=== PATIENT | female | born 1985 | race Caucasian/White ===

== ENCOUNTER 2017-01-14 18:44 | Observation (INO) ==
[2017-01-14 19:16] LABS: Basophils % 0.2 %; Eosinophils # 0.1 K/mcL (0.0-0.6); Eosinophils % 0.3 %; Hematocrit 45.7 % (35.3-44.9); Hemoglobin 14.9 g/dL (11.5-15.4); Immature Granulocytes % 0.5 % (0-4); Lymphocytes # 1.4 K/mcL (0.6-4.6); Mean Corpuscular HGB Conc 32.6 g/dL (31.6-35.5); Mean Corpuscular Hemoglobin 30.8 pg (28.0-33.3); Mean Corpuscular Volume 94.6 fL (83.0-100.0); Mean Platelet Volume 8.8 fL (9.4-12.4); Monocytes % 5.1 %; Neutrophils # 17.2 K/mcL (1.6-8.9); Platelet Count 306 K/mcL (140-400); Red Blood Count 4.83 M/mcL (3.82-4.97); Red Cell Distribution Width 12.8 % (11.5-14.5); Segmented Neutrophils % 86.9 %
[2017-01-14 19:30] LABS: Alanine Aminotransferase 60 Units/L (0-55); Albumin 3.7 g/dL (3.5-5.0); Albumin/Globulin Ratio 1.1 (1.1-2.2); Alkaline Phosphatase 57 Units/L (38-126); Aspartate Amino Transferase 28 Units/L (5-34); BUN/Creatinine Ratio 12 (6-26); Bilirubin,Direct 0.3 mg/dL (0.0-0.5); Bilirubin,Indirect 0.4 mg/dL (0.0-1.2); Bilirubin,Total 0.7 mg/dL (0.2-1.2); Blood Urea Nitrogen 12 mg/dL (7-20); Calcium 8.8 mg/dL (8.6-10.8); Carbon Dioxide 20 mEq/L (19-29); Chloride 109 mEq/L (98-109); Globulin 3.5 g/dL (2.4-3.5); Glucose 216 mg/dL (70-99); Osmolality,Calculated 296 (280-300); Potassium 3.8 mEq/L (3.5-4.5); Sodium 140 mEq/L (136-145); Total Protein 7.2 g/dL (6.0-8.3); eGFR For African Americans > 60 (> 60); eGFR For Non-African Americans > 60 (> 60)
[2017-01-14 19:32] LABS: Acetaminophen < 1.0 mcg/mL (10-30); Salicylate < 5.0 mg/dL (15-30)
--- NOTE | 2017-01-14 19:52 | Emergency Department Note ---
Overdose - [facility] Narrative Medical decision making narrative: Patient was brought in for suspected overdose. Patient responded to Narcan. Patient was found down at the site at her friend's house and per report patient was cyanotic. Patient was given 2 mg of Narcan. Patient started to come out of it. Paramedics were called to the scene and patient was brought to the hospital. Patient continued to go in and out of consciousness but was able to maintain her airway. When alert patient was alert alert and oriented 3 but with [place] off into sleep. Patient remained easily arousable but patient's stupor is some matter of concern. We monitored patient for a number of hours the patient's condition continued to remain the same patient would be awake and playing on her phone and look very alert and in within moments she would pass out. Patient's urine came back positive for UTI, urine trichomonas, urine tox screen came back positive for benzos and opiates. ABG ordered Metronidazole ordered to cover for possible Trichomonas infection Patient is accepted for admission by Dr. Garvin the hospitalist @2246hrs - Lab Data Lab results reviewed: Yes I reviewed the patient's lab results. Lab results narrative: Short CBC 01/14/17 Range/Units 19:08 WBC 19.8 H (4.3-11.1) K/mcL Hgb 14.9 (11.5-15.4) g/dL Hct 45.7 H (35.3-44.9) % Plt Count 306 (140-400) K/mcL Neutrophils # 17.2 H (1.6-8.9) K/mcL BMP 01/14/17 Range/Units 19:08 Sodium 140 (136-145) mEq/L Potassium 3.8 (3.5-4.5) mEq/L Chloride 109 (98-109) mEq/L Carbon Dioxide 20 (19-29) mEq/L BUN 12 (7-20) mg/dL Creatinine 0.97 (0.57-1.11) mg/dL Glucose 216 H (70-99) mg/dL Calcium 8.8 (8.6-10.8) mg/dL Liver Function 01/14/17 Range/Units 19:08 Total Bilirubin 0.7 (0.2-1.2) mg/dL Direct Bilirubin 0.3 (0.0-0.5) mg/dL AST 28 (5-34) Units/L ALT 60 H (0-55) Units/L Alkaline Phosphatase 57 (38-126) Units/L Albumin 3.7 (3.5-5.0) g/dL Urine 01/14/17 Range/Units 22:09 Urine Color Dark Yellow (Yellow) Urine Clarity Turbid A (Clear) Urine pH 6.0 (5.0-8.0) pH Units Ur Specific [place] 1.023 (1.010-1.025) Urine Protein 100 H (Neg-Trace) mg/dL Urine Glucose (UA) 100 H (Normal) mg/dL Result diagrams: 01/14/17 19:08 01/14/17 19:08 Lab Results 01/14/17 01/14/17 Range/Units 19:08 19:08 WBC 19.8 H (4.3-11.1) K/mcL RBC 4.83 (3.82-4.97) M/mcL Hgb 14.9 (11.5-15.4) g/dL Hct 45.7 H (35.3-44.9) % MCV 94.6 (83.0-100.0) fL MCH 30.8 (28.0-33.3) pg MCHC 32.6 (31.6-35.5) g/dL RDW 12.8 (11.5-14.5) % Plt Count 306 (140-400) K/mcL MPV 8.8 L (9.4-12.4) fL Immature Gran % 0.5 (0-4) % Seg Neutrophils % 86.9 % Lymphocytes % 7.0 % Monocytes % 5.1 % Eosinophils % 0.3 % Basophils % 0.2 % Neutrophils # 17.2 H (1.6-8.9) K/mcL Lymphocytes # 1.4 (0.6-4.6) K/mcL Monocytes # 1.0 (0.0-1.3) K/mcL Eosinophils # 0.1 (0.0-0.6) K/mcL Basophils # 0.0 (0.0-0.2) K/mcL Sodium 140 (136-145) mEq/L Potassium 3.8 (3.5-4.5) mEq/L Chloride 109 (98-109) mEq/L Carbon Dioxide 20 (19-29) mEq/L BUN 12 (7-20) mg/dL Creatinine 0.97 (0.57-1.11) mg/dL Est GFR ( Amer) > 60 (> 60) Est GFR (Non-Af Amer) > 60 (> 60) BUN/Creatinine Ratio 12 (6-26) Glucose 216 H (70-99) mg/dL Calculated Osmolality 296 (280-300) Calcium 8.8 (8.6-10.8) mg/dL Total Bilirubin 0.7 (0.2-1.2) mg/dL Direct Bilirubin 0.3 (0.0-0.5) mg/dL Indirect Bilirubin 0.4 (0.0-1.2) mg/dL AST 28 (5-34) Units/L ALT 60 H (0-55) Units/L Alkaline Phosphatase 57 (38-126) Units/L Serum Total Protein 7.2 (6.0-8.3) g/dL Albumin 3.7 (3.5-5.0) g/dL Globulin 3.5 (2.4-3.5) g/dL Albumin/Globulin Ratio 1.1 (1.1-2.2) Salicylates < 5.0 L (15-30) mg/dL Acetaminophen < 1.0 L (10-30) mcg/mL - Radiology Data Radiology results reviewed: Yes I reviewed the patient's radiology results. Chest X-Ray 01/14/17 18:51 IMPRESSION: No acute pulmonary process. Progress films are recommended, as x-ray appearance can be normal in the early hours following alveolar injury from overdose. D/ / Terell Hardy / Terell Hardy Interpreting Provider: Terell Hardy - EKG Data EKG attestation: Yes I reviewed and interpreted this EKG. EKG results narrative: EKG taken 01/14/2017 at 1910 hrs. shows a sinus rhythm at a rate of [address] elevations or depressions and a leads, the patient does show T-wave inversions in lead 3. No QRS widening or QT prolongation. No previous EKG for comparison. Overdose HPI - General Chief Complaint: ED Overdose Stated Complaint: Overdose Source: EMS Limitations: no limitations Nursing Notes Reviewed: Yes Vital Signs Reviewed: Yes - History of Present Illness HPI Narrative: Patient is a 31-year-old female who is brought in by EMS secondary to overdose. Patient states that she has not taken anything. Patient states that she status post 4 urological surgery to break up kidney stones in her left ureter. This was performed at [facility]. EMS states patient was given 2 mg of Narcan as she was found at the scene unconscious and cyanotic. Patient became alert after given the Narcan. Patient states that she started having nausea and vomiting at around 1600 hrs. today just prior to the onset of her loss of consciousness. Patient states she smokes but denies alcohol use and illicit drug use now. 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 - Related Data Home Medications Medication Instructions Recorded Confirmed Unable To Obtain [Unable to Obtain] 01/14/17 01/14/17 Allergies Allergy/AdvReac Type Severity Reaction Status Date / Time Cefaclor [From Ceclor] Allergy Swelling Verified 04/17/16 12:04 of Lip/Tongue/Throat cephalexin [From Keflex] Allergy Swelling Verified 04/17/16 12:04 of Lip/Tongue/Throat Erythromycin Base Allergy Swelling Verified 04/17/16 12:04 of Lip/Tongue/Throat All systems ED: reviewed and negative except as stated. Review of Systems: As Per HPI Constitutional: Denies: fever Eyes: Denies: vision change ENT ED: Denies: congestion Cardiovascular: Denies: chest pain, palpitations Respiratory: Denies: cough, dyspnea, wheezes Gastrointestinal: Reports: abdominal pain Musculoskeletal: Reports: back pain Integumentary: Denies: rash Neurological: Denies: headache Past Medical History - Past Medical History Attestation: Yes The following information was validated with the patient. Source: patient Medical history: Reports: asthma Psychiatric history: Reports: no psych history CLIENT SUPPORT COORDINATOR history: Reports: spontaneous , bilateral tubal ligation - Social History Smoking Status: Current every day smoker Smokeless Tobacco Status: No Alcohol use: Reports: none Drug use: Reports: IV Drug Use Physical Exam Patient is a 31-year-old female who is alert and oriented 3 and in no acute distress. Patient is very sleepy. Patient having a hard time staying awake. Patient does answer questions appropriately. - General Limitations: no limitations General appearance: alert, in no apparent distress - Head Head exam: atraumatic, normocephalic, normal inspection - Eye Eye exam: Present: normal appearance, PERRL, EOMI - ENT ENT exam: normal exam, normal oropharynx, mucous membranes moist - Neck Neck exam: Present: normal inspection, full ROM, trachea midline - Chest Chest inspection: Present: normal inspection, symmetric chest wall rise - Respiratory Respiratory exam: Present: normal lung sounds bilaterally - Cardiovascular Cardiovascular exam: Present: regular rate, normal rhythm, normal heart sounds - Abdominal Exam Abdominal exam: Present: soft, Non-Tender. Absent: tenderness, distention, guarding, rebound, rigidity - Extremities Exam Extremities exam: Present: normal inspection, full ROM. Absent: tenderness, pedal edema - Expanded Lower Extremity Exam Hip/Pelvis exam: Present: normal inspection, full ROM Upper leg exam: Present: normal inspection, full ROM Knee exam: Present: normal inspection, full ROM Lower leg exam: Present: normal inspection, full ROM Ankle exam: Present: normal inspection, full ROM Foot/toe exam: Present: normal inspection, full ROM Neurovascular/Tendon exam: Absent: motor deficit, sensory deficit, tendon deficit - Back Exam Back exam: Present: normal inspection, full ROM, CVA tenderness (L). Absent: tenderness, CVA tenderness (R) - Neurological Exam Neurological exam: Present: alert, oriented X3 - Psychiatric Psychiatric exam: Present: depressed (Depressed mental state) - Skin Skin exam: Present: warm, diaphoresis Course Vital Signs Temperature 98.2 F 01/14/17 18:48 Pulse Rate 100 01/14/17 18:48 Respiratory Rate 18 01/14/17 18:48 Blood Pressure 124/84 01/14/17 18:48 O2 Sat by Pulse Oximetry 84 01/14/17 18:48 Temperature 98.2 F 01/14/17 18:48 Pulse Rate 88 01/14/17 21:15 Respiratory Rate 16 01/14/17 21:15 Blood Pressure 131/83 01/14/17 21:15 O2 Sat by Pulse Oximetry 97 01/14/17 21:15 Oxygen Delivery Oxygen Delivery Room Air Disposition Clinical Impression: Stuporous depression Overdose Qualifiers: Encounter type: initial encounter Injury intent: undetermined intent Qualified Code(s): T50.904A - Poisoning by unspecified drugs, medicaments and biological substances, undetermined, initial encounter Acute drug overdose Qualifiers: Encounter type: initial encounter Injury intent: undetermined intent Qualified Code(s): T50.904A - Poisoning by unspecified drugs, medicaments and biological substances, undetermined, initial encounter Altered mental status Qualifiers: Altered mental status type: transient alteration of awareness Qualified Code(s) : R40.4 - Transient alteration of awareness Nausea and vomiting Qualifiers: Vomiting type: unspecified Vomiting Intractability: non-intractable Qualified Code(s): R11.2 - Nausea with vomiting, unspecified Disposition: Admitted As Inpatient Condition: Fair Referrals: NONE,PCP [Non-Partnered Physician] - Forms: ED Satisfaction Letter Time of Disposition: 23:27 Attestation Statement - Attestation Attestation: I, Ciro Valentine DO, examined this patient [id number] and my medical decision-making was reviewed with Dr. Alton Flores, Resident Physician. I agree with the documented findings, disposition and treatment plan as described except to the extent set forth below. Please see my progress notes for details. 31-year-old female presented by EMS after being found down at her residence. She is breathing approximately 3-4 times a minute she was cyanotic and had diminished pulses. Patient had pinpoint pupils. Narcan was given by the police initially 2 mg of Narcan was again given by EMS. On presentation patient is slightly somnolent her pupils are 2 mm but minimally reactive at this point. She is allergic answers questions appropriately. According EMS is sitting in a pool of her own vomit. Chest x-ray EKG labs including CBC chemistry urinalysis and urine drug screen ordered this time. Patient did say that she had anesthesia today for lithotripsy. She was discharged from the hospital multiple hours ago without any complication. Denies any specific drugs of abuse but did use methamphetamine according to her. Patient fits a toxidrome of opioid overdose at this point. We will continue to monitor here and control symptoms. Patient will also be evaluated further pathology including infection aspiration pneumonia cardiac related symptoms radiology as well as infectious pathology or other drugs of abuse. Patient otherwise is neurologically intact except for somnolence. No acute signs of medication reaction secondary to the anesthesia today. Patient is otherwise alert and oriented this point on presentation after receiving 2 doses of Narcan. Physical exam is otherwise benign except for dried emesis on the side of the face. Trachea is midline lungs are clear no coarse crackles noted. Heart is regular. Initial vital signs did show hypoxia when she got here when she got sitting upright pulse ox became normal. Blood pressure heart rate otherwise unremarkable. See detailed documentation of the physical exam, medical intervention, medical decision making process and disposition and the resident physician's note.
[2017-01-14] MEDS ORDERED: Ondansetron ODT 4 MG TAB.RAPDIS SL ONE (20:36)
[2017-01-14] MEDS ORDERED: 0.9 % Sodium Chloride 1,000 ML IVC ONE (22:02)
[2017-01-14] MEDS ORDERED: Clindamycin 900 MG/50 ML 900 MG/50 ML IV.SOLN IVPB ONE (22:02)
[2017-01-14 22:24] LABS: Bilirubin,Urine Negative (Negative); Blood,Urine Large (Negative); Clarity,Urine Turbid (Clear); Color,Urine Dark Yellow (Yellow); Glucose,Urine (UA) 100 mg/dL (Normal); Ketones,Urine Negative (Negative); Leukocyte Esterase,Urine Moderate (Negative); Nitrite,Urine Negative (Negative); Protein,Urine 100 mg/dL (Neg-Trace); Specific Gravity,Urine 1.023 (1.010-1.025); Urobilinogen,Urine Normal (Normal)
[2017-01-14 22:26] LABS: Bacteria,Urine Moderate per hpf (None-Few); RBC,Urine TNTC per hpf (0-3); Squamous Epithelial Cell,Urine Many per lpf (None-Few); WBC,Urine TNTC per hpf (0-3)
[2017-01-14 22:30] LABS: Amphetamine Screen,Urine Negative ng/mL (Cutoff=1000); Barbiturate Screen,Urine Negative ng/mL (Cutoff=200); Benzodiazepines Screen,Urine Positive ng/mL (Cutoff=200); Cannabinoid Screen,Urine Negative ng/mL (Cutoff = 50); Cocaine Screen,Urine Negative ng/mL (Cutoff= 300); Opiate Screen,Urine Positive ng/mL (Cutoff=300); Phencyclidine Screen,Urine Negative ng/mL (Cutoff=25)
[2017-01-14 22:39] LABS: Hyaline Casts,Urine Few per lpf (None-Few); Mucus,Urine Many (Few); Trichomonas,Urine Present (None Seen)
--- NOTE | 2017-01-14 22:57 | Internal Med History&Physical ---
Date of Encounter: 01/14/17 Time of Encounter: 22:51 Internal Medicine - H&P: HPI Chief complaint: Overdose Admitted From: Home Plans for Post Hospital Care: Home History of present illness: Ms. Mcdonough is a 31 year old female Past Med Surg Social Fam HX - Past Medical History Medical history: asthma Psychiatric history: no psych history - Social History Smoking Status: Current every day smoker Smokeless Tobacco Status: No Alcohol use: none Drug use: IV Drug Use Internal Medicine - H&P: Meds Unable To Obtain [Unable to Obtain] 01/14/17 [History] 3 Allergy/AdvReac Type Severity Reaction Status Date / Time Cefaclor [From Ceclor] Allergy Swelling Verified 04/17/16 12:04 of Lip/Tongue/Throat cephalexin [From Keflex] Allergy Swelling Verified 04/17/16 12:04 of Lip/Tongue/Throat Erythromycin Base Allergy Swelling Verified 04/17/16 12:04 of Lip/Tongue/Throat All Systems PM: A 10-system review of systems was performed and is negative for pertinent findings except as documented above in the HPI. - Constitutional Vitals: Temp Pulse Resp BP Pulse Ox 98.2 F 88 16 131/83 97 01/14/17 18:48 01/14/17 21:15 01/14/17 21:15 01/14/17 21:15 01/14/17 21:15 Internal Med - H&P Results - Labs CBC & Chem 7: 01/14/17 19:08 01/14/17 19:08 Labs: Short CBC 01/14/17 Range/Units 19:08 WBC 19.8 H (4.3-11.1) K/mcL Hgb 14.9 (11.5-15.4) g/dL Hct 45.7 H (35.3-44.9) % Plt Count 306 (140-400) K/mcL Neutrophils # 17.2 H (1.6-8.9) K/mcL BMP 01/14/17 19:08 Sodium 140 Potassium 3.8 Chloride 109 Carbon Dioxide 20 BUN 12 Creatinine 0.97 Glucose 216 H Calcium 8.8 Liver Function 01/14/17 Range/Units 19:08 Total Bilirubin 0.7 (0.2-1.2) mg/dL Direct Bilirubin 0.3 (0.0-0.5) mg/dL AST 28 (5-34) Units/L ALT 60 H (0-55) Units/L Alkaline Phosphatase 57 (38-126) Units/L Albumin 3.7 (3.5-5.0) g/dL Urine 01/14/17 Range/Units 22:09 Urine Color Dark Yellow (Yellow) Urine Clarity Turbid A (Clear) Urine pH 6.0 (5.0-8.0) pH Units Ur Specific [place] 1.023 (1.010-1.025) Urine Protein 100 H (Neg-Trace) mg/dL Urine Glucose (UA) 100 H (Normal) mg/dL - Impressions ITS Impressions Chest X-Ray 01/14/17 18:51 IMPRESSION: No acute pulmonary process. Progress films are recommended, as x-ray appearance can be normal in the early hours following alveolar injury from overdose. D/ / Terell Hardy / Terell Hardy Interpreting Provider: Terell Hardy
[2017-01-14] MEDS ORDERED: MetroNIDAZOLE 500 MG/100 ML 500 MG/100 ML BAG IVPB ONE (23:24)
[2017-01-14] MEDS ORDERED: *HR* Promethazine 25 MG/ML VIAL IM ONE (23:29)
[2017-01-15] MEDS ORDERED: Naloxone 0.4 MG/ML INJ IVP PRN ×2 (02:58→05:08)
[2017-01-15] MEDS ORDERED: Albuterol 2.5 MG/3 ML NEBULIZER IH PRN (02:59)
--- NOTE | 2017-01-15 03:04 | Event Note ---
Date of Encounter: 01/15/17 Time of Encounter: 03:01 Patient and examined with medical assistant secretary. She presents with a picture suspicious of opiate overdose. Reportedly she had a pinpoint pupil and was to stuporous on arrival of paramedics improved after Narcan. Still lethargic during my interview. Patient today had a urology procedures for left kidney stone according to her. She mentioned that she was given a prescription for [place] only took 2 pills of it. She adamantly denies drug use. She is on antibiotics ciprofloxacin for urinary tract infection. He also mentioned that at the onset of her symptoms she had no episode of vomiting with concern of aspiration. X-ray shows no evidence of pneumonia. She has a white count of 19, 000 not hypotensive. Will hydrate the patient give Narcan as needed. Start on levofloxacin. Get Urine culture. Check arterial blood gas. Keep NPO for now.
[2017-01-15] MEDS ORDERED: Ipratropium/Albuterol Neb 3 ML IH PRN (03:07)
--- NOTE | 2017-01-15 03:28 | Internal Med History&Physical ---
Date of Encounter: 01/15/17 Time of Encounter: 00:15 Assessment and Plan (1) Acute drug overdose Current visit: Yes Status: Acute Patient presents with suspected opiate overdose. -We will give Narcan when necessary. -Keep patient nothing by mouth, due to concern of possible aspiration. -Administer IV fluids. -Check arterial blood gas. Qualifiers: Encounter type: initial encounter Injury intent: undetermined intent Qualified Code(s): T50.904A - Poisoning by unspecified drugs, medicaments and biological substances, undetermined, initial encounter (2) Urinary tract infection Current visit: Yes Status: Acute Patient presents with a urinary tract infection. -Patient had an elevated white count of 19.8. -Urinalysis revealed turbid urine with positive protein, glucose, blood, red blood cells, white blood cells, leukocyte esterase, mucus, and Trichomonas. -We will start on Levaquin 750 mg IV daily. -Continue to monitor. Qualifiers: Qualified Code(s): N39.0 - Urinary tract infection, site not specified (3) Nausea and vomiting Current visit: Yes Status: Acute Patient had vomited several times when she was at her friend's house. -Patient was found in a pile of her own vomit. -Patient has not experienced any nausea or vomiting since her admission. -Patient will be kept nothing by mouth for the time being to prevent the possibility of aspiration. -Chest x-ray did not reveal any signs of pneumonia. Qualifiers: Vomiting type: unspecified Vomiting Intractability: non-intractable Qualified Code(s): R11.2 - Nausea with vomiting, unspecified Internal Medicine - H&P: HPI Chief complaint: Loss of consciousness and cyanosis Admitted From: Home History of present illness: Ms. Mcdonough is a 31 year old female who was seen and examined at bedside this morning. She is a 31-year-old female who was admitted to the hospital with suspected opiate overdose. Patient was at her friend's house, and was found lying down on the ground in a pile of her own vomit. Patient was breathing slowly, she was cyanotic upon arrival of emergency services. Patient was given 2 mg of Narcan, and her condition improved shortly after. On arrival to the hospital, patient had pinpoint pupils and was stuporous. Earlier in the day, patient had a urology procedure for her left kidney stone. Patient was under anesthesia for this procedure. She was given a prescription for [place], and stated that she only took 2 pills. Patient denies current drug use, although admits to using methamphetamine in 2015. Upon admission to the hospital, patient was very drowsy, clammy, and had pinpoint pupils. On physical examination she had a depressed mental state and diaphoresis. Patient did not have nausea, vomiting, chills, fever, or pain. On admission, patient's vital signs were as follows: Temperature was 98.2, pulse was 100, respiratory is 18, blood pressure was 124/84, and O2 saturation was 84. Her O2 saturation improved to 97. Patient has a urinary tract infection, and has a white count of 19.8. Urinalysis was performed, revealing turbid urine which was positive for protein, glucose, blood, red blood cells and white blood cells, leukocyte esterase, mucus, and Trichomonas. Toxicology screening was positive for opiates and benzodiazepines, and also showed salicyclates and acetaminophen. Past Med Surg Social Fam HX - Past Medical History Medical history: asthma Psychiatric history: no psych history - Social History Smoking Status: Current every day smoker Packs per day: 1/2 Smokeless Tobacco Status: No Alcohol use: none Drug use: IV Drug Use Internal Medicine - H&P: Meds Unable To Obtain [Unable to Obtain] 01/14/17 [History] 3 Allergy/AdvReac Type Severity Reaction Status Date / Time Cefaclor [From Ceclor] Allergy Swelling Verified 04/17/16 12:04 of Lip/Tongue/Throat cephalexin [From Keflex] Allergy Swelling Verified 04/17/16 12:04 of Lip/Tongue/Throat Erythromycin Base Allergy Swelling Verified 04/17/16 12:04 of Lip/Tongue/Throat All Systems PM: A 10-system review of systems was performed and is negative for pertinent findings except as documented above in the HPI. - Constitutional Constitutional: excessive sweating, lethargy, no chills, no fever(s), no malaise , no night sweats - Cardiovascular Cardiovascular ROS IM: no chest pain, no dyspnea, no dyspnea on exertion, no edema, no irregular heart rhythm, no lightheadedness, no syncope - Respiratory Respiratory: no wheezing, no pain on inspiration - Gastrointestinal Gastrointestinal: no abdominal pain, no bloating, no constipation, no cramping - Constitutional Vitals: Temp Pulse Resp BP Pulse Ox 98.2 F 88 16 136/102 97 01/14/17 18:48 01/14/17 21:15 01/14/17 23:39 01/14/17 23:39 01/14/17 21:15 General appearance: Present: A&O X 3 - Head Head exam: Present: normal inspection - Expanded Eye Exam Pupils: miosis: Bilateral - Respiratory Respiratory exam: Present: CTAB. Absent: accessory muscle use, rales, rhonchi, wheezes - Cardiovascular Cardiovascular exam: Present: RRR, +S1, +S2. Absent: diastolic murmur, gallop, rubs, systolic murmur - GI/Abdominal GI/Abdominal exam: Present: normal bowel sounds - Skin Skin exam: Present: diaphoretic Internal Med - H&P Results - Labs CBC & Chem 7: 01/14/17 19:08 01/14/17 19:08
[2017-01-15] MEDS ORDERED: Ondansetron 4 MG/2 ML VIAL IVP PRN (05:12)
[2017-01-15] MEDS ORDERED: metroNIDAZOLE 500 MG TABLET PO ONE (05:13)
[2017-01-15 05:57] LABS: Basophils % 0.2 %; Eosinophils % 0.2 %; Hematocrit 42.2 % (35.3-44.9); Hemoglobin 13.8 g/dL (11.5-15.4); Immature Granulocytes % 0.6 % (0-4); Lymphocytes # 2.2 K/mcL (0.6-4.6); Lymphocytes % 11.3 %; Mean Corpuscular HGB Conc 32.7 g/dL (31.6-35.5); Mean Corpuscular Hemoglobin 31.1 pg (28.0-33.3); Monocytes % 5.1 %; Neutrophils # 16.1 K/mcL (1.6-8.9); Platelet Count 274 K/mcL (140-400); Red Blood Count 4.44 M/mcL (3.82-4.97); Red Cell Distribution Width 12.9 % (11.5-14.5); Segmented Neutrophils % 82.6 %
[2017-01-15 05:59] LABS: Alanine Aminotransferase 51 Units/L (0-55); Albumin 3.5 g/dL (3.5-5.0); Albumin/Globulin Ratio 1.1 (1.1-2.2); Alkaline Phosphatase 50 Units/L (38-126); Aspartate Amino Transferase 23 Units/L (5-34); BUN/Creatinine Ratio 15 (6-26); Bilirubin,Total 0.8 mg/dL (0.2-1.2); Blood Urea Nitrogen 12 mg/dL (7-20); Calcium 8.8 mg/dL (8.6-10.8); Carbon Dioxide 23 mEq/L (19-29); Chloride 108 mEq/L (98-109); Globulin 3.3 g/dL (2.4-3.5); Glucose 106 mg/dL (70-99); Magnesium 1.9 mg/dL (1.6-2.6); Osmolality,Calculated 284 (280-300); Sodium 137 mEq/L (136-145); Total Protein 6.8 g/dL (6.0-8.3); eGFR For African Americans > 60 (> 60); eGFR For Non-African Americans > 60 (> 60)
[2017-01-15 06:03] LABS: Acetaminophen < 1.0 mcg/mL (10-30)
[2017-01-15] MEDS: 0.9 % Sodium Chloride 1,000 ML IVC SCH ×2 (07:06→16:29)
[2017-01-15] MEDS: Levofloxacin 750 MG/150 ML 750 MG/150 ML BAG IVPB SCH (08:20)
[2017-01-15] MEDS: Chloraseptic Spray 177 ML BOTTLE MM PRN ×2 (14:18→16:30)
--- NOTE | 2017-01-15 14:46 | EEG/EMG/Oth Biometrics Report ---
EEG Procedure Report Date of procedure: 01/15/17 (EEG recorded on a patient with a recent history of drug overdose. Opiates and benzodiazepines were identified in the urine.) Procedure Note: This is a report of a 21 channel bipolar and referential montage EEG. The posterior dominant rhythm consists of mixed alpha and beta frequencies. This rhythm is not reactive to eye opening. Hyperventilation is not performed during the recording. Periods of drowsiness and stage II sleep were identified as referenced by dropout of the posterior dominant rhythm, and the occurrence of vertex activity, K complexes, and sleep spindles. Photic stimulation is performed and does produce a driving response. The EKG rhythm strip reveals normal sinus rhythm at 78 bpm. Impressions: This EEG recording is within normal limits. There is no evidence of epileptiform activity identified during the study. Comment: Beta frequencies are indeed recognized as a normal variant, however may also be reflective of a host of metabolic conditions, anxiety, as well as benzodiazepines and barbiturates. Please correlate clinically.
--- NOTE | 2017-01-15 18:53 | Electrocardiograph Report ---
[place] [id number] Test Date: 2017-01-14 Pat Name: Rhina Mcdonough Department: 103 Room: 2N15 Gender: F Manager Call: : [phone] Requested By: Ciro Valentine Order Number: [id number] Reading MD: Melvin Lee MD Measurements Intervals [place] Rate: 97 P: 27 ME: 136 QRS: 12 QRSD: 96 T: 7 QT: 362 QTc: 416 Interpretive Statements SINUS RHYTHM Electronically Signed On 01-15-2017 18:51:34 EDT by Melvin Lee MD
--- NOTE | 2017-01-15 19:35 | Internal Med Progress Note ---
Date of Encounter: 01/15/17 Time of Encounter: 11:00 - Assessment and plan (1) Altered mental status Current Visit: Yes Status: Acute Assessment and plan: most likely related to opiates. So far she has maintained normal mentation. Will monitor throughout today. Qualifiers: Altered mental status type: transient alteration of awareness Qualified Code(s): R40.4 - Transient alteration of awareness (2) Acute drug overdose Current Visit: Yes Status: Acute Assessment and plan: Narcan on board. Tested positive for benzodiazepines but did report she was given Fentanyl during anesthesia Qualifiers: Encounter type: initial encounter Injury intent: undetermined intent Qualified Code(s): T50.904A - Poisoning by unspecified drugs, medicaments and biological substances, undetermined, initial encounter (3) Nausea and vomiting Current Visit: Yes Status: Acute Assessment and plan: Improved. Possibly etiology is SE from opiates Qualifiers: Vomiting type: unspecified Vomiting Intractability: non-intractable Qualified Code(s): R11.2 - Nausea with vomiting, unspecified (4) Leukocytosis Current Visit: Yes Status: Acute Assessment and plan: suspected from aspiration pneumonia. Chest xray PA and Lateral is to be done today. Would like to see this improve prior to discharge. Qualifiers: Leukocytosis type: unspecified Qualified Code(s): D72.829 - Elevated white blood cell count, unspecified (5) Aspiration pneumonia Current Visit: Yes Status: Suspected Assessment and plan: as above; continue abx, follow-up cxr Qualifiers: Aspiration pneumonia type: due to vomit Laterality: unspecified laterality Lung location: unspecified part of lung Qualified Code(s): J69.0 - Pneumonitis due to inhalation of food and vomit - Subjective Interval history: Patient feels better, no recurring episodes. Nausea improving but still present. Answers questions appropriately - Constitutional Vitals: Temp Pulse Resp BP Pulse Ox 98.1 F 78 19 131/88 95 01/15/17 16:42 01/15/17 16:42 01/15/17 16:42 01/15/17 16:42 01/15/17 16:42 General appearance: Present: A&O X 3 Exam: - Head Head exam: Present: normal inspection - Expanded Eye Exam Pupils: PERRLA, EOMI - Respiratory Respiratory exam: Present: CTAB. Absent: accessory muscle use, rales, rhonchi, wheezes - Cardiovascular Cardiovascular exam: Present: RRR, +S1, +S2. Absent: diastolic murmur, gallop, rubs, systolic murmur - GI/Abdominal GI/Abdominal exam: Present: normal bowel sounds, non tender - Skin Skin exam: warm, dry Internal Medicine: Result - Labs CBC & Chem 7: 01/15/17 05:39 01/15/17 05:39 Labs: Short CBC 01/15/17 Range/Units 05:39 WBC 19.5 H (4.3-11.1) K/mcL Hgb 13.8 (11.5-15.4) g/dL Hct 42.2 (35.3-44.9) % Plt Count 274 (140-400) K/mcL Neutrophils # 16.1 H (1.6-8.9) K/mcL BMP 01/15/17 05:39 Sodium 137 Potassium 4.0 Chloride 108 Carbon Dioxide 23 BUN 12 Creatinine 0.78 Glucose 106 H Calcium 8.8 Liver Function 01/15/17 Range/Units 05:39 Total Bilirubin 0.8 (0.2-1.2) mg/dL AST 23 (5-34) Units/L ALT 51 (0-55) Units/L Alkaline Phosphatase 50 (38-126) Units/L Albumin 3.5 (3.5-5.0) g/dL - Impressions Impressions Head CT 01/15/17 07:40 IMPRESSION: No acute intracranial abnormality. D/ / Joselito Kim MD / Joselito Kim MD Interpreting Provider: Joselito Kim MD Chest X-Ray 01/15/17 08:23 IMPRESSION: No acute pulmonary process. No change. D/ / Terell Hardy / Terell Hardy Interpreting Provider: Terell Hardy Consult Discharge Plan - Plan Referrals: [facility] [Outside] - 01/22/17 10:00 am (THIS APPOINTMENT IS WITH DR. MACK)
[2017-01-15] MEDS ORDERED: Acetaminophen 325 MG TABLET PO PRN (20:45)
[2017-01-16 01:15] LABS: Basophils % 0.2 %; Eosinophils # 0.4 K/mcL (0.0-0.6); Eosinophils % 3.3 %; Hematocrit 38.6 % (35.3-44.9); Hemoglobin 12.8 g/dL (11.5-15.4); Immature Granulocytes % 0.4 % (0-4); Lymphocytes # 2.5 K/mcL (0.6-4.6); Mean Corpuscular HGB Conc 33.2 g/dL (31.6-35.5); Mean Corpuscular Hemoglobin 31.5 pg (28.0-33.3); Mean Corpuscular Volume 95.1 fL (83.0-100.0); Monocytes # 0.7 K/mcL (0.0-1.3); Monocytes % 5.9 %; Neutrophils # 7.7 K/mcL (1.6-8.9); Platelet Count 238 K/mcL (140-400); Red Blood Count 4.06 M/mcL (3.82-4.97); Red Cell Distribution Width 12.8 % (11.5-14.5); Segmented Neutrophils % 68.2 %
[2017-01-16 01:22] LABS: BUN/Creatinine Ratio 9 (6-26); Blood Urea Nitrogen 7 mg/dL (7-20); Calcium 8.6 mg/dL (8.6-10.8); Carbon Dioxide 22 mEq/L (19-29); Chloride 109 mEq/L (98-109); Glucose 162 mg/dL (70-99); Osmolality,Calculated 292 (280-300); Potassium 3.2 mEq/L (3.5-4.5); Sodium 140 mEq/L (136-145); eGFR For African Americans > 60 (> 60); eGFR For Non-African Americans > 60 (> 60)
[2017-01-16] MEDS: 0.9 % Sodium Chloride 1,000 ML IVC SCH (05:35)
[2017-01-16 07:56] VITALS: BP 119/74
[2017-01-16] MEDS: Levofloxacin 750 MG/150 ML 750 MG/150 ML BAG IVPB SCH (08:13)
[2017-01-16] MEDS ORDERED: Ibuprofen 600 MG TABLET PO ONE (08:24)
--- NOTE | 2017-01-16 10:39 | Discharge Summary ---
Date of Encounter: 01/16/17 Time of Encounter: 10:36 - Discharge Diagnosis (1) Altered mental status Priority: Primary Status: Resolved Qualifiers: Altered mental status type: transient alteration of awareness Qualified Code(s): R40.4 - Transient alteration of awareness (2) Acute drug overdose Priority: Secondary Status: Suspected Qualifiers: Encounter type: initial encounter Injury intent: undetermined intent Qualified Code(s): T50.904A - Poisoning by unspecified drugs, medicaments and biological substances, undetermined, initial encounter (3) Nausea and vomiting Priority: Secondary Status: Resolved Qualifiers: Vomiting type: unspecified Vomiting Intractability: non-intractable Qualified Code(s): R11.2 - Nausea with vomiting, unspecified (4) Leukocytosis Priority: Secondary Status: Resolved Qualifiers: Leukocytosis type: unspecified Qualified Code(s): D72.829 - Elevated white blood cell count, unspecified (5) Aspiration pneumonia Priority: Secondary Status: Acute Qualifiers: Aspiration pneumonia type: due to vomit Laterality: unspecified laterality Lung location: unspecified part of lung Qualified Code(s): J69.0 - Pneumonitis due to inhalation of food and vomit - Discharge Medications Prescriptions: levoFLOXacin [Levaquin] 750 mg PO DAILY #4 tablet Home Medications: Famotidine [Pepcid] 1 tab PO DAILY 01/16/17 [History] levoFLOXacin [Levaquin] 750 mg PO DAILY #4 tablet 01/16/17 [Rx] Allergies/Adverse Reactions: 3 Allergy/AdvReac Type Severity Reaction Status Date / Time Cefaclor [From Ceclor] Allergy Swelling Verified 04/17/16 12:04 of Lip/Tongue/Throat cephalexin [From Keflex] Allergy Swelling Verified 04/17/16 12:04 of Lip/Tongue/Throat Erythromycin Base Allergy Swelling Verified 04/17/16 12:04 of Lip/Tongue/Throat Date of admission: 01/15/17 05:09 Primary care physician: Mariaelena Joiner DO Consults: 01/15/17 05:12 PT [Consult to Physical Therapy] [CONS] Routine Comment: Evaluate, develop and implement POC Reason for Consult: weakness 01/15/17 12:40 Consult to Interpret Exam [CONS] Routine Consulting Provider: Scott Rdz Consult to Interpret Exam: Interpret EEG Discharging clinician: Lynne Schmid - Patient Status Disposition: Home, Self-Care Condition: Fair Functional capacity at discharge: independent ambulation Overall status at discharge: patient is back to baseline - Discharge Instructions Follow Up With: [facility] [Outside] - 01/22/17 10:00 am (THIS APPOINTMENT IS WITH DR. MACK) Additional Instructions: Next available visit to address hyperglycemia, and reassess pneumonia and UTI - Diet and Activity Activity: resume usual activities as tolerated Diet: advance to your usual diet Interval History: She is a 31-year-old female who was admitted to the hospital with suspected opiate overdose. Patient was at her friend's house, and was found lying down on the ground in a pile of her own vomit. Patient was breathing slowly, she was cyanotic upon arrival of emergency services. Patient was given 2 mg of Narcan, and her condition improved shortly after. On arrival to the hospital, patient had pinpoint pupils and was stuporous. Earlier in the day, patient had a urology procedure for her left kidney stone. Patient was under anesthesia for this procedure. She was given a prescription for Stuart, and stated that she only took 2 pills. 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 Upon admission to the hospital, patient was very drowsy, clammy, and had pinpoint pupils. On physical examination she had a depressed mental state and diaphoresis. Patient did not have nausea, vomiting , chills, fever, or pain. On admission, patient's vital signs were as follows: Temperature was 98.2, pulse was 100, respiratory is 18, blood pressure was 124/ 84, and O2 saturation was 84. Her O2 saturation improved to 97. Patient has a urinary tract infection, and has a white count of 19.8. Urinalysis was performed, revealing turbid urine which was positive for protein, glucose, blood , red blood cells and white blood cells, leukocyte esterase, mucus, and Trichomonas. Toxicology screening was positive for opiates and benzodiazepines , and also showed salicyclates and acetaminophen. Per patient she received fentanyl or anesthesia,prior to procedure Hospital course: Repeat chest x-ray PA and lateral did not show any focal findings. However her leukocytosis remained at 19 after repeating. She was noted to have hyperglycemia and sugars ranging from 100-216. She does not have a known history of diabetes. May be attributed to stress response or poor diet. She was treated with IV fluids and Cipro. She was in no respiratory distress she no longer had any alteration of mental status. The following morning her leukocytosis resolved she was discharged home with Levaquin for 4 days. She was instructed to stop taking the opiates she was given postprocedure. - Time Spent with Patient Total time spent providing and/or coordinating discharge services: Less than 30 minutes - Constitutional Vitals: Temp Pulse Resp BP Pulse Ox 98.5 F 70 20 119/74 95 01/16/17 07:53 01/16/17 07:53 01/16/17 07:53 01/16/17 07:53 01/16/17 07:53 General appearance: Present: A&O X 3, morbidly obese - Head Head exam: Present: atraumatic, normocephalic - Eye Eye exam: Present: EOMI, PERRL, conjuntiva pink, sclera anicteric. Absent: nystagmus Pupils: Present: PERRL - Neck Neck exam general surgery: Present: supple, trachea midline. Absent: lymphadenopathy - Respiratory Respiratory exam: Present: CTAB. Absent: accessory muscle use, rales, rhonchi, wheezes - Cardiovascular Cardiovascular exam: Present: RRR, +S1, +S2. Absent: diastolic murmur, gallop, rubs, systolic murmur - Extremities Exam Extremities exam: Present: warm, radial pulses palpable and symmetrical. Absent : calf tenderness, cyanotic, pedal edema
== END 2017-01-16 11:45 | disposition home or self-care (01) | DRG 812 ==
LOC: EMEROO 18:44 → 2NNU 18:44
PROVIDERS: ADMIT Hospitalist; ATTEND Student in an Organized Health Care Education/Training Program